=== PATIENT | male | born 1955 | race Caucasian/White ===

== ENCOUNTER 2018-06-13 11:15 | Emergency (ER) | payer OTHER, SELFPAY ==
[2018-06-13 11:21] VITALS: BP 128/74; PULSE 68; RESP 12; TEMP 37.1; O2SAT 98; BMI 33.1
--- NOTE | 2018-06-13 11:27 | ED_ITS ---
HPI - Chest Pain General Chief Complaint: Chest Pain Stated Complaint: chest pain, heart palpitations Time Seen by Provider: 06/13/18 11:27 Source: patient Mode of arrival: ambulatory Limitations: no limitations History of Present Illness HPI narrative: 62-year-old male here for evaluation of left-sided chest pain. Patient states that he has had a ?background ?discomfort in the left side of his chest for the past 2 weeks. Does not get worse with palpation and movement or breathing. He states that this morning at approximately 0900 hr in the morning he had an increase in this pain. He states that is now improved without any interventions. Never had anything like this before. No prior cardiac workup. Related Data Home Medications Medication Instructions Recorded Confirmed aspirin 81 mg PO DAILY #0 07/07/16 06/13/18 Allergies Allergy/AdvReac Type Severity Reaction Status Date / Time No Known Allergies Allergy Uncoded 11/01/17 12:39 Review of Systems Constitutional Denies fever(s) and Denies headache(s) ENT Ears, Nose, Mouth, and Throat: Denies vertigo, Denies dizziness and Denies headache(s) Cardiovascular Reports chest pain, Denies irregular heart rhythm, Reports palpitations, Denies dyspnea and Denies dyspnea on exertion Respiratory Denies cough, Denies dyspnea and Denies dyspnea on exertion Gastrointestinal Gastrointestinal: Denies abdominal pain, Denies nausea and Denies vomiting Genitourinary Denies dysuria Musculoskeletal Denies myalgias and Denies arthralgias Integumentary/Breasts Denies lesions and Denies rash Neurologic Denies vertigo, Denies dizziness and Denies headache(s) Endocrine Reports palpitations Hematologic/Lymphatic Denies easy bleeding and Denies easy bruising [facility] Medical History Ankle pain (Chronic ~2014) Chronic back pain (Chronic ~2014) Chronic cough (Chronic ~1989) GERD (gastroesophageal reflux disease) (Chronic ~2004) Hay fever (Chronic ~1989) Restless leg syndrome (Chronic ~1989) Scoliosis (Chronic ~2014) Shoulder pain (Chronic ~2004) Sleep apnea (Chronic ~1989) Vision disorder (Chronic) Surgical History Anesthesia (Resolved) History of spinal fusion (~2015) Status post laminectomy (~2015) Family History Father Heart disease Hypertension High cholesterol Mother Age: 84 COPD (chronic obstructive pulmonary disease) Kidney disease Grandmother Cancer Social History Smoking Status: Never smoker Exam Initial Vital Signs Initial Vital Signs: Vital Signs Temperature 98.8 F 06/13/18 11:21 Pulse Rate 68 06/13/18 11:21 Respiratory Rate 12 06/13/18 11:21 Blood Pressure 128/74 06/13/18 11:21 Pulse Oximetry 98 06/13/18 11:21 Const General: cooperative, healthy appearing, comfortable, well developed, well groomed and No acute distress Orientation: alert, awake and oriented x3 HENMT Head: normal to inspection and normocephalic Chest Chest: normal inspection of the chest and normal palpation of entire chest wall Resp Effort & Inspection: normal respiratory effort Auscultation: clear to auscultation bilaterally Cardio Rate: regular rate Rhythm: regular rhythm Pulses: radial pulses present GI Inspection: non-distended Palpation: soft, No firm and No tender Back/Spine/Pelvis Back: No CVA tenderness Skin Lesions: no lesions Rashes: no rashes Neuro General: alert, awake and oriented x3 Cognition: normal cognition Speech: speech normal Extrem General: normal to inspection and capillary refill normal Scores HEART Score Heart Score history: Slightly Suspicious Heart Score EKG: Normal Heart Score Age: 45-64 years old Heart Score risk factors: No known risk factors Heart Score troponin: < or = to normal limit Heart Score Total: 1 Course Orders Ordered: ED Orders 06/13/18 11:21 EKG-12 Lead Routine 06/13/18 11:26 XR chest 1V Stat 06/13/18 11:35 Complete Blood Count AUTO DIFF Stat Comprehensive Metabolic Panel Stat Lipase Stat Troponin & CK Cardiac Panel Stat 06/13/18 15:00 Troponin I Stat Discontinued Medications Aspirin (Aspirin Chew) 324 mg PO NOW ONE Stop: 06/13/18 11:27 Last Admin: 06/13/18 11:31 Dose: 243 mg Sodium Chloride (Normal Saline 0.9%) 1,000 mls @ 150 mls/hr IV CONT KATHY Last Admin: 06/13/18 15:52 Dose: Not Given Vital Signs - 8 hr 06/13/18 11:21 06/13/18 11:30 06/13/18 12:00 Temperature 98.8 F Pulse Rate 68 70 59 L Respiratory Rate 12 11 L 12 Blood Pressure 128/74 Blood Pressure [Right Arm] 108/54 L Pulse Oximetry 98 98 98 06/13/18 12:30 06/13/18 15:50 Temperature Pulse Rate 55 L 68 Respiratory Rate 13 12 Blood Pressure Blood Pressure [Right Arm] 108/71 118/71 Pulse Oximetry 98 100 MDM - Chest Pain Lab Data Attestation: I reviewed the patient's lab results. Result diagrams: 06/13/18 11:35 06/13/18 11:35 Lab Results 06/13/18 06/13/18 06/13/18 Range/Units 11:35 11:35 15:00 WBC 3.8 L (4.5-11.0) X10^3/uL RBC 4.49 L (4.5-5.9) X10^6/uL Hgb 14.0 (13.5-17.5) g/dL Hct 41.7 (41-53) % MCV 92.9 (80-100) fL MCH 31.1 (26-34) PG MCHC 33.5 (30-36) % RDW 14.4 (11.6-14.8) % Plt Count 163 (150-400) X10^3/uL Neut % (Auto) 56.3 (50-75) % Lymph % (Auto) 31.1 (25-40) % [place] % (Auto) 8.6 (3-14) % Eos % (Auto) 2.7 (2-4) % Baso % (Auto) 1.3 (0-2) % Neut # (Auto) 2100 L (3665-5352) /uL Sodium 140 (137-145) mmol/L Potassium 4.1 (3.4-5.1) mmol/L Chloride 104 (98-107) mmol/L Carbon Dioxide 24 (22-32) mmol/L BUN 18 (9-20) mg/dL Creatinine 0.80 (0.66-1.25) mg/dL Estimated GFR > 60.0 (>60) mL/min BUN/Creatinine Ratio 22.5 H (6-22) Glucose 93 (80-110) mg/dL Calcium 9.7 (8.4-10.2) mg/dL Total Bilirubin 0.3 (0.2-1.3) mg/dL AST 33 (17-59) IU/L ALT 39 (21-72) IU/L Alkaline Phosphatase 40 (38-126) U/L Total Creatine Kinase 252 H (55-170) U/L CK-MB (CK-2) 3.03 H (<2.37) ng/mL CK-MB (CK-2) Rel Index 1.2 L (1.5-5.0) % Troponin I < 0.012 < 0.012 (0.01-0.034) ng/mL Total Protein 6.9 (6.3-8.2) g/dL Albumin 4.6 (3.5-5.0) g/dL Globulin 2.3 (1.7-4.1) g/dL Albumin/Globulin Ratio 2.0 (1.0-2.8) Lipase 69 (23-300) U/L Imaging Data Chest x-ray: Radiologist's impression: [address] [address] XRay Report Signed Patient: Mike Bedoya TMR#: [id number] : 6Acct:[id number] Age/Sex: 62 / MDate of Service: 06/13/18 Loc: ED Accession Number: [id number] Procedure: XR chest 1V Ordering Provider: Yony Levine D.O. PROCEDURE: XR CHEST 1V INDICATIONS: chest pain TECHNIQUE: One view of the chest was acquired. COMPARISON: None. FINDINGS: Surgical changes and devices: None. Lungs and pleura: No pleural effusions or pneumothorax. Lungs are clear. Mediastinum: Mediastinal contours appear normal. Heart size is normal. Bones and chest wall: No suspicious bony lesions. Overlying soft tissues appear unremarkable. IMPRESSION: No acute process. Dictated by: Kandis Retana M.D. on 06/13/2018 at 11:42 Approved by: Kandis Retana M.D. on 06/13/2018 at 11:42 ECG Data Attestation: I personally reviewed and interpreted this ECG as follows: Prior ECG tracings: available for review Interpretation: Sinus rhythm Ventricular rate is 63 Normal QRS Normal QTC Normal axis No ST T wave changes Comparison EKG dated 07/14/2016 Sinus rhythm First degree AV block as needed oval 223 Rate is [address] T wave changes MDM Narrative Medical decision making narrative: Patient with unchanged EKG. Troponins negative x2 with the 2nd 1 being 6 hr after the increase in his symptoms earlier today. He has had background symptoms for the past 2 weeks. Low suspicion for ACS. Chest x-ray is unremarkable. Patient was informed he needed to contact his primary care doctor to discuss the indications for a stress test. He is given return precautions. He expressed understanding and agreement plan. Discharge Plan Departure Patient Disposition: Home Clinical Impression: Atypical chest pain Discharge Date/Time: 06/13/18 15:57 Interventions: ED Discharge Assessment Last Done: 06/13/18 15:57 Instructions: DI for Atypical Chest Pain Activity Restrictions/Additional Instructions: I recommend you contact your primary care doctor to discuss I referral to have a stress test performed. Return to the emergency department for any new symptoms, worsening chest pain, problems breathing or any other concerning symptoms. Prescriptions: No Action aspirin 81 MG tablet,delayed release (DR/EC) 81 mg PO DAILY Qty: 0 RF: 0
[2018-06-13 11:30] VITALS: BP 108/54; PULSE 70; RESP 11; O2SAT 98
[2018-06-13] MEDS: ASPIRIN 81 MG TAB 324 MG PO (11:31)
[2018-06-13 11:50] LABS: Add Manual Diff / Slide Review NO; Basophils Percent Auto 1.3 % (0-2); Eosinophils Percent Auto 2.7 % (2-4); Hematocrit 41.7 % (41-53); Lymphocytes Percent Auto 31.1 % (25-40); Mean Corpuscular HGB Conc 33.5 % (30-36); Mean Corpuscular Hemoglobin 31.1 PG (26-34); Mean Corpuscular Volume 92.9 fL (80-100); Monocytes Percent Auto 8.6 % (3-14); Neutrophils Absolute Auto 2100 /uL (3000-5900); Neutrophils Percent Auto 56.3 % (50-75); Platelet Count 163 X10^3/uL (150-400); Red Blood Cell Count 4.49 X10^6/uL (4.5-5.9); Red Cell Distribution Width 14.4 % (11.6-14.8); White Blood Cell Count 3.8 X10^3/uL (4.5-11.0)
[2018-06-13 12:00] VITALS: PULSE 59; RESP 12; O2SAT 98
[2018-06-13 12:11] LABS: Alanine Aminotransferase 39 IU/L (21-72); Albumin 4.6 g/dL (3.5-5.0); Alkaline Phosphatase 40 U/L (38-126); Aspartate Aminotransferase 33 IU/L (17-59); BUN Creatinine Ratio 22.5 (6-22); Bilirubin Total 0.3 mg/dL (0.2-1.3); Blood Urea Nitrogen 18 mg/dL (9-20); Calcium 9.7 mg/dL (8.4-10.2); Carbon Dioxide 24 mmol/L (22-32); Chloride 104 mmol/L (98-107); Creatine Kinase 252 U/L (55-170); Estimated Glomerular Filt Rate > 60.0 mL/min (>60); Globulin 2.3 g/dL (1.7-4.1); Glucose 93 mg/dL (80-110); HEMOLYSIS < 15 (0-50); Lipase 69 U/L (23-300); Potassium 4.1 mmol/L (3.4-5.1); Sodium 140 mmol/L (137-145); Total Protein 6.9 g/dL (6.3-8.2)
[2018-06-13 12:22] LABS: Troponin I < 0.012 ng/mL (0.01-0.034)
[2018-06-13 12:26] LABS: CKMB % Relative Index 1.2 % (1.5-5.0); Creatine Kinase MB 3.03 ng/mL (<2.37)
[2018-06-13 12:30] VITALS: BP 108/71; PULSE 55; RESP 13; O2SAT 98
[2018-06-13 15:35] LABS: Troponin I < 0.012 ng/mL (0.01-0.034)
[2018-06-13 15:50] VITALS: BP 118/71; PULSE 68; RESP 12; O2SAT 100
== END 2018-06-13 15:57 | disposition home or self-care (01) ==
PROVIDERS: Emergency Provider Emergency Medicine; PCP Family Medicine
DX: R07.89 Other chest pain (principal)
CPT/HCPCS: 36415; 36591; 71045; 80053; 82550; 82553; 83690; 84484; 85025; 93005; 99284; 99285

== ENCOUNTER → 2018-08-15 07:49 | Outpatient (CLI) | payer OTHER, SELFPAY ==
--- NOTE | 2018-08-15 12:42 | PM.TREADMILL ---
Cardiac Stress Test Report Referral & Results Date Patient Seen: 08/15/18 Requesting provider: Anmol Banks Indication: Atypical chest pain Rest ECG: Unremarkable Procedure Note: Today following both written and verbal informed consent, the patient was exercised according to a standard Dereck protocol. The patient exercised for a total of 9 min 25 sec achieving a maximum heart rate of 165. Patient's maximum systolic blood pressure was 200. This was an estimated 10.1 MET's. There are no ST-T segment changes Rare PVCs Normal heart rate and blood pressure response although remained somewhat tachycardic willing to recovery Functional aerobic impairment rated-10% on the active scale or 110% normal Impression: No evidence of ischemia based on usual ECG criteria Better than average exercise capacity Please note: Actual ECG tracings can be found in the PACS system.
== END ==
PROVIDERS: PCP Family Medicine; Visit Provider Family Medicine
DX: R07.89 Other chest pain (principal)
CPT/HCPCS: 93016; 93017; 93018

== ENCOUNTER → 2019-12-31 10:08 | Outpatient (CLI) | payer OTHER, SELFPAY ==
[2019-12-31 11:02] LABS: Add Manual Diff / Slide Review NO; Basophils Absolute Auto 0 /uL (0-100); Basophils Percent Auto 0.7 % (0-2); Eosinophils Absolute Auto 100 /uL (0-450); Eosinophils Percent Auto 4.1 % (2-4); Hemoglobin 14.4 g/dL (13.5-17.5); Lymphocytes Absolute Auto 1000 /uL (1100-4500); Lymphocytes Percent Auto 32.5 % (25-40); Mean Corpuscular HGB Conc 34.3 % (30-36); Mean Corpuscular Hemoglobin 32.1 PG (26-34); Mean Corpuscular Volume 93.5 fL (80-100); Monocytes Absolute Auto 300 /uL (0-900); Monocytes Percent Auto 10.4 % (3-14); Neutrophils Absolute Auto 1700 /uL (1500-7000); Neutrophils Percent Auto 52.3 % (50-75); Platelet Count 166 X10^3/uL (150-400); Red Blood Cell Count 4.49 X10^6/uL (4.5-5.9); Red Cell Distribution Width 14.7 % (11.6-14.8); White Blood Cell Count 3.2 X10^3/uL (4.5-11.0)
[2019-12-31 11:05] LABS: Hemoglobin A1C% w Est Avg Glu 5.2 % (4.0-6.0)
[2019-12-31 11:12] LABS: Alanine Aminotransferase 32 IU/L (<50); Albumin 4.6 g/dL (3.5-5.0); Albumin Globulin Ratio 1.6 (1.0-2.8); Alkaline Phosphatase 42 U/L (38-126); Aspartate Aminotransferase 40 IU/L (17-59); Bilirubin Total 0.6 mg/dL (0.2-1.3); Blood Urea Nitrogen 16 mg/dL (9-20); Calcium 9.6 mg/dL (8.4-10.2); Carbon Dioxide 25 mmol/L (22-32); Chloride 106 mmol/L (98-107); Estimated Glomerular Filt Rate > 60.0 mL/min (>60); Globulin 2.8 g/dL (1.7-4.1); Glucose 99 mg/dL (80-110); HEMOLYSIS < 15 (0-50); Potassium 4.3 mmol/L (3.4-5.1); Sodium 137 mmol/L (137-145); Total Protein 7.4 g/dL (6.3-8.2)
[2019-12-31 11:36] LABS: Prostate Specific Antigen 0.919 ng/mL (0.10-4.00)
[2019-12-31 11:56] LABS: TSH w/ Reflex to FT4 0.64 uIU/mL (0.47-4.68)
[2020-01-01 11:51] LABS: SARS-CoV19- IgM Negative (Negative)
[2020-01-01 12:08] LABS: SARS CoV19 IgG Negative (Negative)
[2020-01-01 14:12] LABS: Cholesterol 207 mg/dL (140-199); HDL Cholesterol 69 mg/dL (40-60); LDL Cholesterol Calculated 123 mg/dL (<100); Triglycerides 73 mg/dL (35-150)
== END ==
PROVIDERS: PCP Family Medicine; Referring Provider Family Medicine; Visit Provider Family Medicine
DX: Z00.00 Encounter for general adult medical examination without abnormal findings (principal); Z13.220 Encounter for screening for lipoid disorders; R50.9 Fever, unspecified; Z13.6 Encounter for screening for cardiovascular disorders
CPT/HCPCS: 36415; 80053; 80061; 83036; 84153; 84443; 85025; 86769

== ENCOUNTER → 2021-04-02 08:58 | Outpatient (CLI) | payer MEDICARE, OTHER, SELFPAY ==
[2021-04-02 10:46] LABS: Add Manual Diff / Slide Review NO; Basophils Absolute Auto 0 /uL (0-100); Basophils Percent Auto 0.9 % (0-2); Eosinophils Absolute Auto 200 /uL (0-450); Eosinophils Percent Auto 5.3 % (2-4); Hematocrit 43.5 % (41-53); Hemoglobin 14.4 g/dL (13.5-17.5); Lymphocytes Absolute Auto 1100 /uL (1100-4500); Lymphocytes Percent Auto 28.6 % (25-40); Mean Corpuscular HGB Conc 33.1 % (30-36); Mean Corpuscular Hemoglobin 30.9 PG (26-34); Mean Corpuscular Volume 93.3 fL (80-100); Monocytes Absolute Auto 400 /uL (0-900); Monocytes Percent Auto 10.2 % (3-14); Neutrophils Absolute Auto 2200 /uL (1500-7000); Platelet Count 179 X10^3/uL (150-400); Red Blood Cell Count 4.66 X10^6/uL (4.5-5.9); Red Cell Distribution Width 14.3 % (11.6-14.8)
[2021-04-02 11:16] LABS: Alanine Aminotransferase 44 IU/L (<50); Albumin 4.4 g/dL (3.5-5.0); Albumin Globulin Ratio 1.8 (1.0-2.8); Alkaline Phosphatase 44 U/L (38-126); Aspartate Aminotransferase 39 IU/L (17-59); BUN Creatinine Ratio 11.1 (6-22); Bilirubin Total 0.4 mg/dL (0.2-1.3); Blood Urea Nitrogen 10 mg/dL (9-20); Calcium 9.5 mg/dL (8.4-10.2); Carbon Dioxide 23 mmol/L (22-32); Chloride 109 mmol/L (98-107); Cholesterol 219 mg/dL (140-199); Estimated Glomerular Filt Rate > 60.0 mL/min (>60); Globulin 2.5 g/dL (1.7-4.1); Glucose 90 mg/dL (80-110); HDL Cholesterol 71 mg/dL (40-60); HEMOLYSIS < 15 (0-50); LDL Cholesterol Calculated 131 mg/dL (<100); Potassium 4.2 mmol/L (3.4-5.1); Sodium 139 mmol/L (137-145); Total Protein 6.9 g/dL (6.3-8.2); Triglycerides 87 mg/dL (35-150)
[2021-04-02 11:36] LABS: TSH w/ Reflex to FT4 0.64 uIU/mL (0.47-4.68)
[2021-04-02 11:37] LABS: Prostate Specific Antigen Scrn 0.741 ng/mL (0.1-4.0)
== END ==
PROVIDERS: PCP Family Medicine; Referring Provider Family Medicine; Visit Provider Family Medicine
DX: E78.5 Hyperlipidemia, unspecified (principal); Z12.5 Encounter for screening for malignant neoplasm of prostate; Z13.220 Encounter for screening for lipoid disorders; Z13.6 Encounter for screening for cardiovascular disorders
CPT/HCPCS: 36415; 80053; 80061; 84443; 85025; G0103

== ENCOUNTER → 2021-12-28 14:00 | Outpatient (CLI) | payer MEDICARE, OTHER, SELFPAY ==
--- NOTE | 2021-12-28 14:01 | DI.RAD.S_ITS ---
PROCEDURE: XR HIP W PEL IF DONE LUAN MIN 4V INDICATIONS: Left hip pain - suspect OA TECHNIQUE: AP pelvis with lateral view(s) of the bilateral hip(s). COMPARISON: None. FINDINGS: Bones: No fractures or dislocations. Pelvic ring appears intact. No suspicious bony lesions. Mild bilateral acetabular joint space narrowing noted. L5-S1 fixation with posterior alicia and screw instrumentation. Soft tissues: The visualized bowel gas pattern is normal. No suspicious soft tissue calcifications. IMPRESSION: Mild bilateral acetabular joint space narrowing without marginal osteophytes. L5-S1 discectomy and fusion Approved by: Faraz Victoria M.D. on 12/28/2021 at 17:23
== END ==
PROVIDERS: PCP Family Medicine; Referring Provider Physician Assistant; Visit Provider Physician Assistant
DX: M25.552 Pain in left hip (principal); Z98.1 Arthrodesis status
CPT/HCPCS: 73522; 93005

== ENCOUNTER → 2022-08-02 14:56 | Outpatient (CLI) | payer MEDICARE, OTHER, SELFPAY ==
[2022-08-02 16:28] LABS: Prostate Specific Antigen 1.03 ng/mL (0.10-4.00)
== END ==
PROVIDERS: PCP Family Medicine; Referring Provider Urology; Visit Provider Urology
DX: N40.1 Benign prostatic hyperplasia with lower urinary tract symptoms (principal); N39.43 Post-void dribbling
CPT/HCPCS: 36415; 84153

== ENCOUNTER → 2022-10-14 10:55 | Outpatient (CLI) | payer MEDICARE, OTHER, SELFPAY | PROVIDERS: PCP Family Medicine; Visit Provider Urology | DX: N32.81 Overactive bladder (principal); N39.41 Urge incontinence; R33.9 Retention of urine, unspecified | CPT/HCPCS: 87086 ==

== ENCOUNTER → 2022-10-14 11:34 | Outpatient (CLI) | payer MEDICARE, OTHER, SELFPAY ==
[2022-10-14 12:50] LABS: Appearance Urine UA CLEAR; Bilirubin Urine UA NEGATIVE (NEGATIVE); Color Urine UA YELLOW; Glucose Urine UA NEGATIVE (Negative); Ketones Urine UA NEGATIVE (NEGATIVE); Leukocyte Esterase Urine UA NEGATIVE (NEGATIVE); Nitrite Urine UA NEGATIVE (Negative); Occult Blood Urine UA NEGATIVE (Negative); Protein Urine UA NEGATIVE (Negative); Specific Gravity Urine UA <=1.005 (1.000-1.035); Urobilinogen Urine UA 0.2 E.U./dL (0.2)
[2022-10-14 13:01] LABS: Bacteria Urine None Seen; Culture Indicated Urine Cult Not Indicated; RBC Urine None Seen (0-5/HPF); Squamous Epithelial Cell Urine None Seen (0-5/HPF); WBC Urine None Seen (0-5/HPF)
[2022-10-14 13:12] LABS: Add Manual Diff / Slide Review NO; Basophils Absolute Auto 0 /uL (0-100); Basophils Percent Auto 0.7 % (0-2); Eosinophils Absolute Auto 100 /uL (0-450); Eosinophils Percent Auto 2.7 % (2-4); Hematocrit 43.7 % (41-53); Hemoglobin 14.7 g/dL (13.5-17.5); Lymphocytes Absolute Auto 1300 /uL (1100-4500); Lymphocytes Percent Auto 29.6 % (25-40); Mean Corpuscular HGB Conc 33.8 % (30-36); Mean Corpuscular Hemoglobin 31.2 PG (26-34); Mean Corpuscular Volume 92.3 fL (80-100); Monocytes Absolute Auto 500 /uL (0-900); Monocytes Percent Auto 10.5 % (3-14); Neutrophils Absolute Auto 2600 /uL (1500-7000); Neutrophils Percent Auto 56.5 % (50-75); Platelet Count 196 X10^3/uL (150-400); Red Blood Cell Count 4.73 X10^6/uL (4.5-5.9); Red Cell Distribution Width 14.4 % (11.6-14.8); White Blood Cell Count 4.5 X10^3/uL (4.5-11.0)
[2022-10-14 13:20] LABS: Hemoglobin A1C% w Est Avg Glu 5.3 % (4.0-6.0)
[2022-10-14 13:31] LABS: BUN Creatinine Ratio 13.6 (6-22); Blood Urea Nitrogen 12 mg/dL (9-20); Calcium 9.5 mg/dL (8.4-10.2); Carbon Dioxide 23 mmol/L (22-32); Chloride 105 mmol/L (98-107); Estimated Glomerular Filt Rate > 60 mL/min (>60); Glucose 78 mg/dL (80-110); HEMOLYSIS < 15 (0-50); Sodium 138 mmol/L (137-145)
== END ==
PROVIDERS: PCP Family Medicine; Referring Provider Orthopaedic Surgery; Visit Provider Orthopaedic Surgery
DX: Z01.818 Encounter for other preprocedural examination (principal); Z01.812 Encounter for preprocedural laboratory examination; R73.9 Hyperglycemia, unspecified; N39.0 Urinary tract infection, site not specified; N40.1 Benign prostatic hyperplasia with lower urinary tract symptoms; N32.81 Overactive bladder; N39.41 Urge incontinence; R33.9 Retention of urine, unspecified; R39.9 Unspecified symptoms and signs involving the genitourinary system; N39.43 Post-void dribbling
CPT/HCPCS: 36415; 51798; 80048; 81001; 81002; 83036; 85025; 87086; 93005; 93010; 99214

== ENCOUNTER 2022-12-15 08:56 | Day surgery (SDC) | payer MEDICARE, OTHER, SELFPAY ==
[2022-12-05 13:55] VITALS: BMI 38.4
[2022-12-15] VITALS (10 sets, daily range): BP systolic 112–166; BP diastolic 60–92; PULSE 70–94; RESP 11–21; TEMP 35.9–36.6; O2SAT 92–99; BMI 38.0
--- NOTE | 2022-12-15 08:17 | DI.RAD.S_ITS ---
PROCEDURE: XR PELVIS 1-2V INDICATIONS: INNER OP PELVIS TECHNIQUE: Intra-operative view of the pelvis and hip acquired. COMPARISON: None. FINDINGS: Bones: Intraoperative devices prior to placement of arthroplasty prostheses are in expected positions. No fractures or suspicious bony lesions. Soft tissues: Overlying surgical retractors are present, along with other intraoperative changes. IMPRESSION: Single intraoperative fluoroscopic image of a left hip arthroplasty. Dictated by: Irina Mitchell M.D. on 12/15/2022 at 17:35 Approved by: Irina Mitchell M.D. on 12/15/2022 at 17:35
[2022-12-15] MEDS: ACETAMINOPHEN 325 MG TABLET 975 MG PO (09:37)
[2022-12-15] MEDS: PREGABALIN 75 MG CAPSULE PO (09:37)
[2022-12-15] MEDS: CELECOXIB 200 MG CAPSULE PO (09:38)
[2022-12-15] MEDS: VANCOMYCIN 1,000 MG/200 ML PIGGYBACK 200 MG IV (10:23)
[2022-12-15] MEDS: LACTATED RINGERS 1,000 ML 42 ML IV ×2 (10:27→12:15)
--- NOTE | 2022-12-15 10:45 | P.OP_ITS ---
Operative Date/Time/Diagnoses Date of procedure: 12/15/22 Time of procedure: 11:20 Pre-op diagnosis: left hip OA severe Post-op diagnosis: same Procedure & Clinicians Procedure: Left total hip arthroplasty posterior approach Same procedure as scheduled: Yes Indications: The patient has had progressively worsening left hip pain with radiographic changes consistent with arthritis. Non-operative management has failed and the patient has requested total hip replacement. The risks, benefits and alternatives to surgery were discussed with the patient prior to proceeding. Risks discussed included, but were not limited to, failure to relieve pain, leg length discrepancy, dislocation, stiffness, infection, nerve damage, deep venous thrombosis, pulmonary embolism, stroke, coma, heart attack, permanent paralysis and , as well as the potential need for eventual revision of the prosthetic. Surgeon: Dominique Bustillo Abstract Checker: Santi Lizama Anesthesia Type: General Operative Notes Findings: Severe left hip osteoarthritis, adequate stability, tight hip preop hip abduction contracture Closure Type: primary Specimen(s): none sent Prosthetic devices, grafts, tissues, transplants, or devices: Bustillo and nephew size 14 synergy, 56 mm R3 cup, 56 x -3 Oxinium head, neutral poly liner, one 6.5 mm screw Estimated Blood Loss (mL): 250 Blood products transfused: none Procedure in detail: The patient was seen in the pre-operative area, where the patient identified the left hip as the operative site and this was marked with my initials. The patient received pre-operative antibiotics and was taken to the operating room and placed on the operative table in the right lateral decubitus position after satisfactory anesthesia. A lead care manager out was performed. The left leg was prepared from the ankle to the iliac crest with ChloroPrep in the usual fashion and draped through sterile drapes. A PA was used throughout the procedure and was critical for intraoperative positioning of the patient, retraction of the femoral to allow successful implantation of the components and adequate visualization for hemostasis. The hip was approached through an approximately 20 cm incision centered over the greater trochanter and curving gently posteriorly as it went proximally. This was carried sharply to the fascia kevin, which was divided and retracted with a self retaining retractor. The trochanteric bursa was excised with care being taken to avoid the sciatic nerve, which was identified and protected throughout the case. The short external rotators were incised and the capsulomuscular flap was raised and tagged for later repair. The hip was dislocated, and a femoral neck osteotomy performed approximately 15 mm above the lesser trochanter. Retractors were placed around the femur. The canal was opened with a box cutting osteotome, followed by a T handled reamer and a lateralizing reamer. The chili pepper broach was then used, followed by sequential broaching until there was good stability of the broach in the femur. Retractors were placed to expose the acetabulum. The labrum and central soft tissues were removed. Reaming was performed initially going up in 2 mm increments, then 1 mm increments until good bite was obtained with an odd sized reamer. The cup 1 mm larger than the last reamer was then inserted using the appropriate anteversion guides. It was further stabilized with 2 screws. He did have a somewhat washed out acetabulum. Good stability was achieved. A trial neutral liner was placed. The broach was placed in the canal. A trial head and neck were then placed and the hip relocated and checked for leg length and stability. An intraoperative film confirmed the component position and no evidence of fracture. It was felt that the component was in slight varus and we should attempt to go up at least 1 and further lateralize the component. The patient was stable in the position of sleep, of squatting, and could be put through a range of motion with 45 degrees internal rotation without dislocation. At 90 degrees flexion, internal rotation to 70? was possible before dislocation. I was able to additionally ream with Reamer and then further broached up to a size 14 synergy. This was felt to be satisfactory and the appropriate components were opened, and the trials were removed. The acetabular liner was impacted into position. The final stem was then impac loan into the prepared femoral canal. A brief Betadine soak was performed while trialing with head options. The hip was meticulously irrigated with normal saline. Finally the femoral head was impacted onto the stem. The acetabulum was cleared of all material and the hip relocated one final time. The capsulomuscular flap was then repaired to the greater trochanter though an awl hole using the tag sutures. The short external rotators were repaired with a nonabsorbable suture. A deep drain was placed and brought out anteriorly. The fascia kevin was closed with Vicryl. The subcutaneous layer was closed with barbed sutures and skin jose. An Aquacel Ag dressing was applied and the patient was taken to recovery having tolerated the procedure well. Complications: none Post-operative Condition: stable Disposition: Acute Care Plan for aftercare: The patient will be maintained on a standard total hip replacement protocol with weight bearing as tolerated and posterior hip precautions. The patient will receive Aspirin and sequential compression devices for DVT prophylaxis. The patient will be discharged home when safe for the home environment.
--- NOTE | 2022-12-15 10:45 | PM.PREOP ---
Pre-operative Note Interval Note History & Physical reviewed/Exam performed by Physician: Yes Changes to H&P: No
[2022-12-15] MEDS: CEFAZOLIN VIAL 3 GM in SODIUM CHLORIDE 0.9% 100 ML IV ×2 (12:03→19:52)
[2022-12-15] MEDS: TRANEXAMIC ACID 1,000 MG VIAL 2000 MG INJ ×2 (12:05→13:50)
--- NOTE | 2022-12-15 12:15 | SUR.OPER ---
Lateral on padded OR bed. Gel axillary roll. Arms secured on padded armboard with two pillows supporting top arm. Gel pad under right arm. Padded hip positioner braces x4 - anterior and posterior chest and pelvis. Additional gel pad used anterior pelvis. Gel pad under bottom leg from knee to foot and secured with tape over sheet.
[2022-12-15] MEDS: BUPIVACAINE 0.25% (PF) 60 ML, EPINEPHrine 0.3 MG INJ (12:30)
[2022-12-15] MEDS: BUPIVACAINE LIPOSOME 266 MG/20 ML VIAL INJ (12:31)
[2022-12-15] MEDS: SODIUM CHLORIDE IRRIG SOLUTION 250 ML, POVIDONE-IODINE SPONGE STICKS 1 APPLIC IRR (12:36)
[2022-12-15] MEDS: LACTATED RINGERS 1,000 ML 100 ML IV (13:15)
[2022-12-15] MEDS: OXYCODONE IR 5 MG TABLET PO ×2 (14:26→21:15)
--- NOTE | 2022-12-15 14:30 | DI.RAD.S_ITS ---
PROCEDURE: XR HIP W PEL IF DONE LT 2V INDICATIONS: POST OP LEFT HIP TECHNIQUE: AP pelvis and lateral view of the left hip acquired. COMPARISON: [facility], [facility], XR HIP W PEL IF DONE LUAN 3TO4V, 12/28/2021, 13:58. FINDINGS: Bones: Patient is status post left hip arthroplasty, with hardware components in expected positions. The hip joint appears congruent. The visualized bony structures appear intact. Soft tissues: Overlying postoperative changes are noted. No suspicious soft tissue densities. IMPRESSION: Expected appearance post left hip arthroplasty. Dictated by: Mary Anne M.D. on 12/16/2022 at 21:45 Approved by: Mary Anne M.D. on 12/16/2022 at 21:46
--- NOTE | 2022-12-15 16:00 | PT.IIE ---
Current Diagnoses Unilateral primary osteoarthritis, left hip (12/15/22) Surgery Performed Operation Date: 12/15/22 10:45 Actual Procedures p Total Hip Arthroplasty(Left) - Dominique Bustillo MD Surgical History (Last Updated 12/05/22 @ 14:12 by Candida Beach RN) Anesthesia History of spinal fusion (~2015) Hx of arthroscopy of knee Hx of bilateral cataract extraction Hx of eye surgery (2022) Hx of tonsillectomy Status post laminectomy (~2015) Medical History (Last Updated 12/05/22 @ 14:13 by Candida Beach RN) Ankle pain (~2014) Chronic back pain (~2014) Chronic cough (~1989) Encounter for routine ophthalmic evaluation and examination (12/13/16) Fever Frequent urinary incontinence GERD (gastroesophageal reflux disease) (~2004) Hay fever (~1989) Incomplete emptying of bladder Lower urinary tract symptoms Overactive bladder Pain in the coccyx (12/13/16) Restless leg syndrome (~1989) Scoliosis (~2014) Screening cholesterol level Shoulder pain (~2004) Sleep apnea (~1989) Urge incontinence Urgency of urination Urinary incontinence Vision disorder Physical Therapy Inpatient Evaluation/Re-Eval M1 PT/OT-IP Prior Functional Status Start: 12/15/22 17:00 Freq: NEEDED Status: Active Protocol: Document 12/15/22 16:00 AB (Rec: 12/15/22 17:14 [id number]) Medical Review Prior Functional Status Medical History Reviewed Yes Communication able to make needs known Mobility and Gait pt stated that he is modified independent with all mobilities and ambulation without AD but uses a SPC depending on hip pain Social History Household Members spouse Living Arrangements House Number of Floors (Floors) Two Floors Number of Stairs To Enter/Railing? 3 steps without rails to enter with braun on B sides has 7 steps B rail +platform+7 steps R rail ascending to 2nd level of the house Home Environment Standard Height Toilet,Walk in Shower,Built-In Shower Seat Home Equipment Front Wheel Walker,Four Wheel Walker,Straight Cane,Raised Toilet Seat w/Armrests,Hand Held Shower Additional Social History Comment pt has 2 FWW: one on each level of the house M2 PT-IP Current Condition Start: 12/15/22 17:00 Freq: NEEDED Status: Active Protocol: Document 12/15/22 16:00 AB (Rec: 12/15/22 17:14 [email or web address]) Physical Therapy Current Condition Current Condition Evaluation Date 12/15/22 Treatment Diagnosis s/p L ZHAO posterior approach; difficulty in walking Onset Date 12/15/22 M3 PT-IP Subjective Start: 12/15/22 17:00 Freq: NEEDED Status: Active Protocol: Document 12/15/22 16:00 AB (Rec: 12/15/22 17:14 [email or web address]) Subjective Physical Therapy Visit Type Type Initial Evaluation Visit Start Time 16:00 Visit Stop Time 17:00 Total Visit Minutes 60 Number of TANK CHARGER Visits 0 Physical Therapy Visit Comments Patient Comments agreeable to do PT Therapy Pain Assessment Pain When Pain Assessed At Rest Pain Present Pain Present Pain Reported Location Left Hip Intensity 5 Scale Used Numeric (0 - 10) Pain Management Techniques Apply Cold,Distraction, Modification of Treatment,Re- positioning,Timing of Activity with Medications M4 PT-IP Mobility and Gait Start: 12/15/22 17:00 Freq: NEEDED Status: Active Protocol: Document 12/15/22 16:00 AB (Rec: 12/15/22 17:14 [email or web address]) PT-Bed Mobility Assessment Supine to Sit Supine to Sit Standby Assistance Sit to Supine Sit to Supine Standby Assistance PT-Transfer Assessment Sit to and From Stand Sit to and from Stand Minimal Assistance,1 Person Assistance,Use of Upper Extremities Equipment Transfer Assistive Device Gait Belt,Front Wheeled Walker Orthotic/Prosthetic Devices or Brace: No Comments Mobility Comments educated pt on posterior hip precautions. BP in supine: 155/84. completed supine to sit SBA from R side of bed. able to sit on EOB SBA. BP in sitting : 147/77. no c/o dizziness. completed sit to stand min A and cues for hip precautions. ambulated in room using FWW ~ 60 ft min A and cues. BP after ambulation: 143/68. requested to go back to bed. completed sit to supine SBA. positioned pt in bed. call light and table placed within reach. informed nurse regarding pt's mobility assistance. Gait Assessment Gait Gait Assistance Required: Minimum Assistance Distance (Feet) 60 Able to Maintain Weight Bearing Status Yes During Gait Assistive Devices Assistive Device Gait Belt,Front Wheeled Walker Orthotic/Prosthetic Devices or Brace: No Gait Deviations General Gait Pattern Antalgic,Decreased Stride Length,Decreased Feet Clearance,Step-to Gait Factors Limiting Gait Function Factors Limiting Gait Function Decreased Activity Tolerance, Decreased Strength,Limited Range of Motion,Pain,Poor Balance,Poor Safety Awareness PT-Balance Assessment Sitting Balance and Reactions Static Sitting Balance Ability Normal Dynamic Sitting Balance Ability Good Standing Balance and Reactions Static Standing Balance Ability Fair Dynamic Standing Balance Ability Fair Device Used FWW M5 PT-IP Objective Assessments Start: 12/15/22 17:00 Freq: NEEDED Status: Active Protocol: Document 12/15/22 16:00 AB (Rec: 12/15/22 17:14 AB [id number]) Orientation Orientation/Cognition Level of Alertness Alert Orientation Name,Place,Situation Language Function Ability No Deficits Noted Safety Awareness Decreased Safety Awareness Memory Description Short Term Impaired Strength Lower Extremity Strength Assessment Left Impaired Hip 3-/5 Knee 4/5 Coordination Assessment Gross Coordination Gross Coordination WNL Sensation Assessment Sensation Gross Sensation WNL Muscle Tone Muscle Tone WNL Yes M6 PT-IP Treatment Start: 12/15/22 17:00 Freq: NEEDED Status: Active Protocol: Document 12/15/22 16:00 AB (Rec: 12/15/22 17:14 AB [email or web address]) Physical Therapy Treatment Education Education Provided Precautions,Weight Bearing Status,Post-Op Packet,Safety M7 PT-IP Assessment and Plan Start: 12/15/22 17:00 Freq: NEEDED Status: Active Protocol: Document 12/15/22 16:00 AB (Rec: 12/15/22 17:14 AB [email or web address]) PT Summary Assessment and Plan Potential Rehabilitation Potential Good Status of Condition at Evaluation Evolving Summary Impairments Pain,ROM,Strength,Balance, Coordination,Sensation,Tone, Cognition,Bed Mobility, Transfers,Gait,Activity Tolerance Assessment Summary PT s/p L ZHAO posterior approach POD 0. pt requiring min A for transfers and ambulation using FWW and will likely progress during hospital stay. will conduct caregiver training when appropriate. Pt also needs to complete stair climbing training prior to d/c. will continue to assess progress. Goals Bed Mobility Goal Independent Transfer Goal Independent,Front Wheeled Walker Gait Goal Independent,Front Wheel Walker Gait Distance 250 Other Goals up/down 3 steps SPC/SACK FILLER CGA up/down 7 steps B rails SBA up/down 7 steps R rail ascending SBA Days to Meet Goals 5 Frequency of Treatment Frequency Of Treatment Twice a Day Treatment Plan Physical Therapy Treatment Plan Bed Mobility Training,Transfer Training,Gait Training, Therapeutic Exercise,Balance Retraining,Post Op Education, Discharge Planning,Hot or Cold Pack,Neuromuscular Re-ed, Coordination Retraining,Manual Therapy Precautions Posterior Hip Precautions No Hip Flexion > 90 degrees,No Hip Internal Rotation,No Hip Adduction Weight Bearing Status Weight Bearing Status Weight Bear as Tolerated Allowed Weight Bearing Amount (enter % LLE WBAT or #) (%) Recommendations To Nursing Amount of Assist Needed 1 Person Assist Discharge Recommendations PT Discharge Recommendations Home with Assistance, Outpatient PT Transportation Needs at Discharge Private Vehicle
--- NOTE | 2022-12-15 16:14 | OT.IPNOTE ---
Check on pt tomorrow as pt currently working with PT.
[2022-12-15] MEDS: OXYCODONE IR 10 MG TABLET PO (16:19)
[2022-12-15] MEDS: IBUPROFEN 400 MG TABLET PO ×2 (19:27→21:16)
[2022-12-15] MEDS: ONDANSETRON 4 MG ODT PO (21:16)
[2022-12-15] MEDS: hydrOXYzine pamoate 25 MG CAPSULE PO (21:16)
[2022-12-15] MEDS: DOCUSATE 100 MG CAPSULE PO (21:16)
[2022-12-15] MEDS: ASPIRIN EC 81 MG TABLET PO (21:16)
[2022-12-16] MEDS: LACTATED RINGERS 1,000 ML 100 ML IV (03:06)
[2022-12-16] MEDS: CEFAZOLIN VIAL 3 GM in SODIUM CHLORIDE 0.9% 100 ML IV (04:28)
[2022-12-16 06:21] LABS: Hematocrit 35.3 % (41-53); Hemoglobin 12.1 g/dL (13.5-17.5)
[2022-12-16] MEDS: IBUPROFEN 400 MG TABLET PO (06:25)
--- NOTE | 2022-12-16 06:47 | PM.DS.1 ---
History of Present Illness History of Present Illness Date Patient Seen: 12/16/22 Time Patient Seen: 06:47 Chief complaint: Left ZHAO *OPB* 12/15 Narrative: Operative Date/Time/Diagnoses Date of procedure: 12/15/22 Time of procedure: 11:20 Pre-op diagnosis: left hip OA severe Post-op diagnosis: same Procedure & Clinicians Procedure: Left total hip arthroplasty posterior approach Same procedure as scheduled: Yes Indications: The patient has had progressively worsening left hip pain with radiographic changes consistent with arthritis. Non-operative management has failed and the patient has requested total hip replacement. The risks, benefits and alternatives to surgery were discussed with the patient prior to proceeding. Risks discussed included, but were not limited to, failure to relieve pain, leg length discrepancy, dislocation, stiffness, infection, nerve damage, deep venous thrombosis, pulmonary embolism, stroke, coma, heart attack, permanent paralysis and , as well as the potential need for eventual revision of the prosthetic. Surgeon: Dominique Bustillo Culinary Arts Teacher: Santi Lizama Anesthesia Type: General Operative Notes Findings: Severe left hip osteoarthritis, adequate stability, tight hip preop hip abduction contracture Closure Type: primary Specimen(s): none sent Prosthetic devices, grafts, tissues, transplants, or devices: Bustillo and nephew size 14 synergy, 56 mm R3 cup, 56 x -3 Oxinium head, neutral poly liner, one 6.5 mm screw Estimated Blood Loss (mL): 250 Blood products transfused: none Discharge Providers Provider Discharge Date: 12/16/22 Primary care physician: Anmol Banks MD Consults: 12/15/22 08:17 Consult to Anesthesiology Routine Comment: Consulting Provider: Anesthesiologist Reason for consultation: Regional block for post operative pain control 12/15/22 14:45 Consult to Discharge Planning Routine Comment: Consult to Occupational Therapy Evaluate & Treat Comment: Physician Instructions: Evaluate and treat Consult to Physical Therapy Evaluate & Treat Comment: Physician Instructions: post op ZHAO protocol Discharge provider: Marianna Lubin PA-C Summary Hospital Course Discharge Diagnosis: Left hip osteoarthritis, s/p left total hip arthroplasty Hospital Course: Mr Bedoya's hospital course was unremarkable. On POD# 1, he was feeling well and wanted to go home. He was eating and voiding without difficulty. His pain was well-controlled with oral medication. He was evaluated by PT and they felt he was safe for homegoing. Exam Vital Signs (past 8 hours): Oxygen Delivery Method Room Air Oxygen Flow Rate 0 Narrative Exam Narrative: 5/5 strength in hip flexors, quadriceps, hamstrings, DF, PF, EHL on left. Sensation to light touch intact throughout LLE. Calf soft, compressible, nontender and without palpable cords or masses. Aquacel dressing CDI. Objective Labs 12/16/22 06:05 Labs: Laboratory Results - last 24 hr 12/16/22 06:05 Hgb 12.1 L Hct 35.3 L PFSH Medical History (Updated 12/05/22 @ 14:13 by Candida Beach RN) Ankle pain (~2014) Chronic back pain (~2014) Chronic cough (~1989) Encounter for routine ophthalmic evaluation and examination (12/13/16) Fever Frequent urinary incontinence GERD (gastroesophageal reflux disease) (~2004) Hay fever (~1989) Incomplete emptying of bladder Lower urinary tract symptoms Overactive bladder Pain in the coccyx (12/13/16) Restless leg syndrome (~1989) Scoliosis (~2014) Screening cholesterol level Shoulder pain (~2004) Sleep apnea (~1989) Urge incontinence Urgency of urination Urinary incontinence Vision disorder Surgical History (Updated 12/05/22 @ 14:12 by Candida Beach RN) Anesthesia History of spinal fusion (~2015) Hx of arthroscopy of knee Hx of bilateral cataract extraction Hx of eye surgery (2022) Hx of tonsillectomy Status post laminectomy (~2015) Family History Father Heart disease Hypertension High cholesterol Mother Age: 89 COPD (chronic obstructive pulmonary disease) Kidney disease Grandmother Cancer Social History marital status: number of children: 2 household members: spouse Smoking Status: Never smoker alcohol intake: current substance use type: does not use caffeine: Yes Discharge Assessment & Plan Assessment and Plan Assessment: Left hip osteoarthritis, s/p left total hip arthroplasty Plan of Treatment: Discharge home, multimodal pain control, ASA BID x 6 weeks for VTE prophylaxis, outpt PT, f/u in 2 weeks as scheduled. Discharge Plan Discharge Plan Patient Disposition: Home Discharge orders & Medications Discharge Orders: Discharge (Order); Ordered 12/16/22 Ordered By: Marianna Lubin Prescriptions: Continued Probiotic 1 ea PO DAILY Qty: 100 0RF Gemtesa 75 mg tablet 75 mg PO DAILY Qty: 30 12RF magnesium glycinate 100 mg Tablet 500 mg PO DAILY multivitamin Tablet 1 tab PO DAILY flaxseed oil 1,000 mg capsule 1,000 mg PO DAILY Rx Instructions: administer with a meal cholecalciferol (vitamin D3) 50 mcg (2,000 unit) capsule 50 mcg PO DAILY Follow up/Referrals: Anmol Banks MD [Primary Care Provider] - Dominique Bustillo MD [Physician] - As previously scheduled (Follow up w/ Dr Bustillo on 12/28/2022 @ 9:30 am at [facility].) Diet/Activity/Treatments Diet: Diet as Tolerated Activity: Weightbearing as tolerated to left hip. Posterior hip precautions. Cold/Heat Therapy: Ice to hip as needed for pain. Other treatments: Aspirin 81 mg twice a day x 6 weeks. Skin/Wound/Dressing Care Report to your healthcare provider any signs of infection, such as:: chills, fever, night sweats, unusual drainage and unusual redness Dressing: May shower with dressing on. Leave Aquacel dressing on until your follow up in the office. No bathing or otherwise soaking the incision. Call the office if the dressing becomes saturated inside. Visit Report/Discharge Packet Instructions: DI for Hip Replacement Stand Alone Forms: Patient Portal/API, Surgery Discharge Discharge Data Primary Care Provider: Anmol Banks Attending Provider: Dominique Bustillo Quality VTE Deep Vein Thrombosis/Pulmonary Embolism Present on Admission: No
[2022-12-16 08:34] VITALS: BP 102/50; PULSE 67; RESP 18; TEMP 36.5; O2SAT 95
[2022-12-16] MEDS: MULTIVITAMIN 1 TABLET 1 TAB PO (08:48)
[2022-12-16] MEDS: CHOLECALCIFEROL (VITAMIN D3) 1,000 UNIT TABLET 1000 UNIT PO (08:48)
[2022-12-16] MEDS: DOCUSATE 100 MG CAPSULE PO (08:48)
[2022-12-16] MEDS: ASPIRIN EC 81 MG TABLET PO (08:48)
[2022-12-16] MEDS: OXYCODONE IR 5 MG TABLET PO (08:48)
[2022-12-16] MEDS: ACETAMINOPHEN 325 MG TABLET 650 MG PO (08:49)
--- NOTE | 2022-12-16 09:05 | PT.IPTN ---
Current Diagnoses Unilateral primary osteoarthritis, left hip (12/15/22) Surgery Performed Operation Date: 12/15/22 10:45 Actual Procedures p Total Hip Arthroplasty(Left) - Dominique Bustillo MD Physical Therapy Treatment Note M2 PT-IP Current Condition Start: 12/15/22 17:00 Freq: NEEDED Status: Active Protocol: Document 12/15/22 16:00 AB (Rec: 12/15/22 17:14 AB [id number]) Physical Therapy Current Condition Current Condition Evaluation Date 12/15/22 Treatment Diagnosis s/p L ZHAO posterior approach; difficulty in walking Onset Date 12/15/22 M3 PT-IP Subjective Start: 12/15/22 17:00 Freq: NEEDED Status: Active Protocol: Document 12/16/22 09:25 TS (Rec: 12/16/22 09:48 TS [id number]) Subjective Physical Therapy Visit Type Type Treatment Note Visit Start Time 09:05 Visit Stop Time 09:24 Total Visit Minutes 19 Number of DEPARTMENTAL SHIPPING CLERK Visits 1 Physical Therapy Visit Comments Patient Comments Pt found ambulating out of restroom, reports minimal pain , agreeable to PT. Therapy Pain Assessment Pain When Pain Assessed At Rest Pain Present Pain Present Pain Reported M4 PT-IP Mobility and Gait Start: 12/15/22 17:00 Freq: NEEDED Status: Active Protocol: Document 12/16/22 09:25 TS (Rec: 12/16/22 09:48 TS [id number]) PT-Transfer Assessment Sit to and From Stand Sit to and from Stand Standby Assistance,1 Person Assistance,Use of Upper Extremities Equipment Transfer Assistive Device Gait Belt,Front Wheeled Walker Orthotic/Prosthetic Devices or Brace: No Comments Mobility Comments Pt found ambulating in room w/ FWW, agreeable to PT. Pt recalled 3/3 hip precautions at start of session. He ambulated ~200' SBA with emerging step thru gait, no buckling or LOB. He performed steps x6 SBA with BUE support, provided cues for step sequencing. Stand to sit in chair SBA with BUE support on arms of chair, demonstrates good carryover of hip precautions with LLE extended. Pt was left in chair with call light nearby, RN notified . Gait Assessment Gait Gait Assistance Required: Standby Assistance Distance (Feet) 200 Able to Maintain Weight Bearing Status Yes During Gait Assistive Devices Assistive Device Gait Belt,Front Wheeled Walker Orthotic/Prosthetic Devices or Brace: No Gait Deviations General Gait Pattern Antalgic,Decreased Stride Length,Decreased Feet Clearance Factors Limiting Gait Function Factors Limiting Gait Function Decreased Strength,Limited Range of Motion,Pain Comments Gait Comments See mobility comments. Stair Climbing Assessment Evaluation Level of Assist On Stairs Standby Assistance Devices Stair Climbing Assistive Devices Left Railing,Right Railing Technique/Endurance Stair Climbing Direction Ascend and Descend Stair Climbing Technique Step to Step Number of Steps Climbed 6 Comments Stair Climbing Comments See mobility comments. PT-Balance Assessment Sitting Balance and Reactions Static Sitting Balance Ability Normal Dynamic Sitting Balance Ability Good Standing Balance and Reactions Static Standing Balance Ability Good Dynamic Standing Balance Ability Fair Device Used FWW M5 PT-IP Objective Assessments Start: 12/15/22 17:00 Freq: NEEDED Status: Active Protocol: Document 12/15/22 16:00 AB (Rec: 12/15/22 17:14 AB [id number]) Orientation Orientation/Cognition Level of Alertness Alert Orientation Name,Place,Situation Language Function Ability No Deficits Noted Safety Awareness Decreased Safety Awareness Memory Description Short Term Impaired Strength Lower Extremity Strength Assessment Left Impaired Hip 3-/5 Knee 4/5 Coordination Assessment Gross Coordination Gross Coordination WNL Sensation Assessment Sensation Gross Sensation WNL Muscle Tone Muscle Tone WNL Yes M6 PT-IP Treatment Start: 12/15/22 17:00 Freq: NEEDED Status: Active Protocol: Document 12/16/22 09:25 TS (Rec: 12/16/22 09:48 [id number]) Physical Therapy Treatment Education Education Provided Precautions,Weight Bearing Status,Post-Op Packet,Safety M7 PT-IP Assessment and Plan Start: 12/15/22 17:00 Freq: NEEDED Status: Active Protocol: Document 12/16/22 09:25 TS (Rec: 12/16/22 09:48 [id number]) PT Summary Assessment and Plan Potential Rehabilitation Potential Excellent Summary Impairments Pain,ROM,Strength,Balance, Coordination,Sensation,Tone, Cognition,Bed Mobility, Transfers,Gait,Activity Tolerance Progress Towards Goals Progressing Toward Goals Assessment Summary Pt is progressing well with his mobility. He increased his ambulation distance to ~200' SBA with step thru gait. He performed stairs x6 SBA with BUE handrail assist, no buckling or LOB. Pt demonstrates good carryover of sit to stand/stand to sit and good safety awareness of his posterior hip precautions, recalled 09/23. PT is recommending return home with assist. Goals Bed Mobility Goal Independent Transfer Goal Independent,Front Wheeled Walker Gait Goal Independent,Front Wheel Walker Gait Distance 250 Other Goals up/down 3 steps SPC/INSTRUMENT MAKER CGA up/down 7 steps B rails SBA up/down 7 steps R rail ascending SBA Days to Meet Goals 5 Frequency of Treatment Frequency Of Treatment Twice a Day Treatment Plan Physical Therapy Treatment Plan Bed Mobility Training,Transfer Training,Gait Training, Therapeutic Exercise,Balance Retraining,Post Op Education, Discharge Planning,Hot or Cold Pack,Neuromuscular Re-ed, Coordination Retraining,Manual Therapy Precautions Posterior Hip Precautions No Hip Flexion > 90 degrees,No Hip Internal Rotation,No Hip Adduction Weight Bearing Status Weight Bearing Status Weight Bear as Tolerated Allowed Weight Bearing Amount (enter % LLE WBAT or #) (%) Recommendations To Nursing Amount of Assist Needed Standby Assistance Discharge Recommendations PT Discharge Recommendations Home with Assistance, Outpatient PT Transportation Needs at Discharge Private Vehicle
--- NOTE | 2022-12-16 09:19 | CM.DANOTE ---
Initial DCP Assessment Note Pt is a 67 yo male, resident of [place], now POD#1 s/p left total hip arthroplasty PCP: Anmol Banks Payer: [facility]/ for [facility] Reviewed chart, Therapy has cleared pt for return home w/family to assist and pt has planned for home, DC order from Ortho has already been initiated this morning. No barriers identified at this time to patient's safe discharge home w/family to assist; close outpatient f/u recommended. HOLLEY Saenz Discharge Planning/Care Management CM Discharge Assessment Start: 12/16/22 09:17 Freq: Status: Active Protocol: Document 12/16/22 09:17 AFSHAN (Rec: 12/16/22 09:19 [email or web address] [id number]) Discharge Planning Assessment Assigned Mycologist HOLLEY Preciado DPOA/Assigned Designee Name Meri () Contact Information [phone] Advance Directives? No Advance Directives on File No History Provided By Patient,Medical Record Prior Living Arrangements House Household Members spouse Type of transporation used prior to Drives own vehicle admit Independent with ADL's Yes Is patient alert and oriented? Yes Patient/Family Preference OP PT Therapy Barriers to Discharge No Discharge Plan Home Transportation Arrangement Spouse Referrals Initiated None needed
--- NOTE | 2022-12-16 09:43 | OT.IP.EVAL ---
Current Diagnoses Unilateral primary osteoarthritis, left hip (12/15/22) Surgery Performed Operation Date: 12/15/22 10:45 Actual Procedures p Total Hip Arthroplasty(Left) - Dominique Bustillo MD Past Medical History (Last Updated 12/05/22 @ 14:13 by Candida Beach, RN) Ankle pain (~2014) Chronic back pain (~2014) Chronic cough (~1989) Encounter for routine ophthalmic evaluation and examination (12/13/16) Fever Frequent urinary incontinence GERD (gastroesophageal reflux disease) (~2004) Hay fever (~1989) Incomplete emptying of bladder Lower urinary tract symptoms Overactive bladder Pain in the coccyx (12/13/16) Restless leg syndrome (~1989) Scoliosis (~2014) Screening cholesterol level Shoulder pain (~2004) Sleep apnea (~1989) Urge incontinence Urgency of urination Urinary incontinence Vision disorder Surgical History (Last Updated 12/05/22 @ 14:12 by Candida Beach RN) Anesthesia History of spinal fusion (~2015) Hx of arthroscopy of knee Hx of bilateral cataract extraction Hx of eye surgery (2022) Hx of tonsillectomy Status post laminectomy (~2015) Occupational Therapy Inpatient Evaluation/Re-Eval M1 PT/OT-IP Prior Functional Status Start: 12/16/22 10:13 Freq: NEEDED Status: Active Protocol: Document 12/16/22 09:25 [facility] (Rec: 12/16/22 10:27 [facility] [id number]) Medical Review Prior Functional Status Medical History Reviewed Yes Communication able to make needs known Mobility and Gait pt stated that he is modified independent with all mobilities and ambulation without AD but uses a SPC depending on hip pain Activities of Daily Living and IADL's Pt states had pain during ADL and IADL needs. Social History Household Members spouse Living Arrangements House Number of Floors (Floors) Two Floors Number of Stairs To Enter/Railing? 3 steps without rails to enter with braun on B sides has 7 steps B rail +platform+7 steps R rail ascending to 2nd level of the house Home Environment Standard Height Toilet,Walk in Shower,Built-In Shower Seat Home Equipment Front Wheel Walker,Four Wheel Walker,Straight Cane,Raised Toilet Seat w/Armrests,Hand Held Shower,Long Handled Shoe Horn,Gambling Dealer,Sock Aid Additional Social History Comment pt has 2 FWW: one on each level of the house Pt has has a toilet paper aid M2 OT-IP Current Condition Start: 12/16/22 10:13 Freq: Status: Active Protocol: Document 12/16/22 09:25 [facility] (Rec: 12/16/22 10:27 [facility] [id number]) Occupational Therapy Current Condition Current Condition Evaluation Date 12/16/22 Treatment Diagnosis S/p L ZHAO Post Operative Precautions Posterior Hip Precautions No Hip Flexion > 90 degrees,No Hip Internal Rotation,No Hip Adduction M3 OT- IP Subjective and Pain Start: 12/16/22 10:13 Freq: Status: Active Protocol: Document 12/16/22 09:25 [facility] (Rec: 12/16/22 10:27 [facility] [id number]) OT- Subjective Occupational Therapy Visit Type Type Initial Evaluation Visit Start Time 09:25 Visit Stop Time 09:43 Total Visit Minutes 18 Occupational Therapy Visit Comments Patient Comments Pt agreed to get dressed in order to practice use of LB dressing equipment. Patient/Caregiver Goals To go home. OT Pain Assessment Pain When Pain Assessed At Rest Pain Present Pain Present Denied Pain M4 OT- IP ADL's Start: 12/16/22 10:13 Freq: Status: Active Protocol: Document 12/16/22 09:25 [facility] (Rec: 12/16/22 10:27 [facility] [id number]) OT [id number]-[id number]-Uhyfuyj General Evaluation Self-Feeding Ability Independent OT ADL-Grooming Comments OT Grooming Comments Not performed OT ADL-Oral Care Comments Oral Care Comments Not performed OT ADL-Dressing General Eval Lower Body Dressing Ability Standby Assistance Areas Needing Assistance Retrieving/Set-up of Clothing Comments OT Dressing Comments Pt able to use LB dressing equipment safely in order to follow all his hip precautions . OT ADL-Toileting Comments OT Toileting Comments Not performed. Pt states has a toilet paper aid and wipes at home to use. OT ADL-Bathing Comments OT Bathing Comments Spoke on getting a shower chair or to double check on the height of the built in shower seat. Pt's able to assist pt at home. M5 OT- IP IADL's Start: 12/16/22 10:13 Freq: Status: Active Protocol: Document 12/16/22 09:25 [facility] (Rec: 12/16/22 10:27 [facility] [id number]) OT-Instrumental Activities of Daily Living Deficits IADL Deficits Identified Deficits Home Safety Awareness Awareness of Need for Assistance at Home Good Awareness Ability to Problem Solve Emergency Able to Problem Solve Situations Home Safety Comments Pt has a supportive to assist for his needs. M6 OT- IP Functional Cognition Start: 12/16/22 10:13 Freq: Status: Active Protocol: Document 12/16/22 09:25 [facility] (Rec: 12/16/22 10:27 [facility] [id number]) Cognitive Factors Limiting Selfcare Function Cognitive Ability Level of Alertness Alert Patient Orientation Name,Age,Birthday,Month,Date, Year,Day of Week,Place, Situation Attention Span Ability Capable of Focused Attention, Capable of Sustained Attention Ability to Follow Commands Able to Follow Multi-Step Commands Safety Awareness Underestimates Need for Assistance Cognitive Comments Cognitive Assessment Comments Pt intact but insistent on trying to use the SPC for a few steps. Pt able to do with CGA for assist and continue to insist that he uses the FWW for his safety and balance. M7 OT- IP Mobility and Balance Start: 12/16/22 10:13 Freq: Status: Active Protocol: Document 12/16/22 09:25 [facility] (Rec: 12/16/22 10:27 [facility] [id number]) OT-Transfer Assessment Sit to and From Stand Sit to and from Stand Standby Assistance Transfers Transfer Ability Standby Assistance Technique Transfer Destination Bed Devices Transfer Assistive Devices Front Wheeled Walker Comments Mobility Comments SBA to come to stand to the FWW. OT- Balance Assessment Sitting Balance and Reactions Static Sitting Balance Ability Normal Dynamic Sitting Balance Ability Good Standing Balance and Reactions Static Standing Balance Ability Good Dynamic Standing Balance Ability Good Comments Other Balance Tests/Deviations/Treatment with FWW : Fair- balance with SPC for a few steps as pt wanting to try . M9 OT- IP Assessment and Plan Start: 12/16/22 10:13 Freq: Status: Active Protocol: Document 12/16/22 09:25 [facility] (Rec: 12/16/22 10:27 [facility] [id number]) OT Summary Assessment and Plan Potential Rehabilitation Potential Excellent Analytic Complexity at Evaluation Low Summary OT Impairments Balance,Functional Mobility, Bathing,Shower Transfers Progress Towards Goals Progressing Toward Goals Assessment Summary Pt low complexity and doing well and able to use LB dressing effectively and safely to follow his hip precautions well. Pt wanting to try the SPC for a few steps and realizes best to just use the FWW for now for his safety. Pt to go home with assist when medically stable. Goals Bathing Goal Independent Shower Transfer Goal Independent Days to Meet Goals 5 Frequency of Treatment Frequency Of Treatment Once a Day Treatment Plan OT Treatment Plan ADL Training,Functional Mobility,Patient/Family Education,Discharge Planning Discharge Recommendations OT Discharge Recommendations Home with Assistance Home Equipment Needs shower chair? Transportation Needs at Discharge Private Vehicle
--- NOTE | 2022-12-16 10:37 | PC.NURSE ---
Day shift: Paperwork signed and all questions answered. Pt left unit via WC at approx 1040. Taken to car by PCT Kalie. Spouse in room for teachings and she is driving Pt home. Pain well controlled per SEP. Dressing remains CDI. Pt has MD scripts already.
== END 2022-12-16 10:39 | disposition home or self-care (01) ==
LOC: OR 08:57 → AC 08:57
PROVIDERS: PCP Family Medicine; Referring Provider Orthopaedic Surgery; Visit Provider Orthopaedic Surgery
PROC: 0SRB0JZ Replacement of Left Hip Joint with Synthetic Substitute, Open Approach (ICD-10-PCS; CPT 27130; principal; 2022-12-15 10:45)
DX: M16.12 Unilateral primary osteoarthritis, left hip (principal); G47.30 Sleep apnea, unspecified
CPT/HCPCS: 27130; 36415; 72170; 73502; 85014; 85018; 97116; 97162; 97165; 97530; C1776; C9290; J0171; J0690; J1170; J2250; J3010

== ENCOUNTER → 2024-02-09 13:26 | Outpatient (CLI) | payer MEDICARE, OTHER, SELFPAY ==
[2022-12-15 14:57] VITALS: BMI 38.0
[2024-02-09 16:29] LABS: Prostate Specific Antigen Scrn 0.995 ng/mL (0.1-4.0)
== END ==
PROVIDERS: PCP Family Medicine; Referring Provider Urology; Visit Provider Urology
DX: Z12.5 Encounter for screening for malignant neoplasm of prostate (principal)
CPT/HCPCS: 36415; G0103

== ENCOUNTER → 2024-11-29 14:08 | Outpatient (CLI) | payer MEDICARE, OTHER, SELFPAY ==
[2022-12-15 14:57] VITALS: BMI 38.0
--- NOTE | 2024-11-29 15:37 | DI.NM.S_ITS ---
PROCEDURE: NM EXERCISE TREADMILL NON NUC COMPARISON: None. INDICATIONS: chest pain FINDINGS: Patient exercised per the standard Dereck protocol. Total exercise time was 6 minutes and 35 seconds. Test was terminated secondary to knee pain. Maximal heart rate obtained is 154 bpm which is 102% of maximum predicted heart rate. Maximum blood pressure [place] 202/[place] [address]. AYDE of +5%. 7.0 METS. No ischemic changes noted. No chest pains voiced. Occasional PVCs noted during the stress phase. No ventricular arrhythmias present. Normal heart rate with hypertensive response to exercise. IMPRESSION: 1. Negative exercise treadmill stress test for ischemia. 2. Below average exercise tolerance. 3. Hypertensive response to exercise. Dictated by: Sidney De Leon M.D. on 11/29/2024 at 17:03 Approved by: Sidney De Leon M.D. on 11/29/2024 at 17:04
== END ==
LOC: NUCM 14:09
PROVIDERS: PCP Family Medicine; Referring Provider Family Medicine; Visit Provider Family Medicine
DX: R07.9 Chest pain, unspecified (principal)
CPT/HCPCS: 93016; 93017; 93018

== ENCOUNTER → 2024-12-03 14:15 | Outpatient (CLI) | payer MEDICARE, OTHER, SELFPAY ==
[2022-12-15 14:57] VITALS: BMI 38.0
--- NOTE | 2024-12-03 14:17 | DI.ECHO.S_ITS ---
[facility] : : [address] : : [place] : : [id number] : : Phone: [phone] Echocardiogram Report + + :Name: GABI GREENFIELD Study Date: 12/03/2024 Height: 70 in : :Hospital ReadingLocation: Weight: 267 lb : : Gender: Male BSA: 2.4 m2 : :: 1955 Age: 69 yrs BP: 156/91 mmHg: :Reason For Study: Chest pain : :Ordering Physician: MICHELLE, : :GUNNAR Performed By: Timothy Mendez : :Referring: GUNNAR MARTINEZ : + + Interpretation Summary Sinus rhythm with heart rate 50-60 bpm. Normal LV size and mild concentric LVH; normal wall motion and LV systolic function. EF is 60-65%. Normal chamber sizes. No significant valvular abnormalities. No prior study available for comparison. Procedure: A two-dimensional transthoracic echocardiogram with color flow and Doppler was performed. The study quality was technically adequate. There is no prior echocardiogram noted for this patient. The patient was in unknown rhythm due to artifact during the exam. Left Ventricle: The left ventricle is normal in size. Left ventricular wall thickness is mildly increased. Left ventricular systolic function is normal. The ejection fraction is estimated to be 60-65%. There are no focal wall motion abnormalities. Diastolic parameters suggest a relaxation abnormality of the left ventricle, consistent with probable normal filling pressures. Right Ventricle: The right ventricle is normal in size and function. Atria: The left atrial size is normal. Right atrial size is normal. There is no Doppler evidence for an interatrial shunt. Mitral Valve: The mitral valve leaflets appear to open well. There is no mitral valve stenosis. There is trace mitral regurgitation. Aortic Valve: The aortic valve is trileaflet. There is mild aortic valve sclerosis. There is no hemodynamically significant valvular aortic stenosis. No aortic regurgitation is present. Tricuspid Valve: The tricuspid valve leaflets are thin and pliable. There is mild tricuspid regurgitation. The right ventricular systolic pressure is estimated to be at least 20 mmHg based on an estimated right atrial pressure of 3 mm Hg. Pulmonic Valve: The pulmonic valve is not well seen, but is grossly normal. There is a trace or physiologic amount of pulmonic regurgitation. Great Vessels: The aortic root is normal size. The ascending aorta is normal in size. The aortic arch is normal in size. The IVC is of normal diameter and collapses greater than 50% with a sniff. This suggests a low right atrial pressure of 3 mm Hg. Pericardium/ Pleura There is no pericardial effusion. MMode/2D Measurements & Calculations LVIDd: 4.5 cm LVOT diam: 2.4 cm LVIDs: 3.1 cm Ao root diam: 3.1 cm FS: 29.9 % asc Aorta Diam: 3.2 cm EPSS: 0.51 cm Ao Arch Diam (Prox Trans): 2.6 cm IVSd: 1.4 cm LVPWd: 1.3 cm LV rg. diameter/BSA (cm/m^2): 1.9 LV sys. diameter/BSA (cm/m^2): 1.3 LA A2 area: 22.5 cm2 RA long axis: 5.6 cm LA A4 area: 22.6 cm2 RA area: 14.7 cm2 LA length (vol): 6.2 cm RA vol: 32.5 ml LA vol: 69.4 ml RA : 13.8 ml/m2 LA vol index: 29.4 ml/m2 IVC diam: 1.9 cm RVD1 (basal): 3.1 cm RVD2 (mid): 2.8 cm TAPSE: 1.8 cm Doppler Measurements & Calculations Ao V2 max: 183.0 cm/sec LVOT Max Ari: 86.7 cm/sec Ao V2 mean: 116.6 cm/sec LV V1 max P.0 mmHg Ao max P.4 mmHg LV V1 VTI: 20.9 cm Ao mean P.6 mmHg LORENZA(I,D): 2.4 cm2 Ao V2 VTI: 38.2 cm LORENZA(V,D): 2.1 cm2 sev ratio: 0.55 LORENZA indexed to BSA (cm^2/m^2): 1.0 MV E max ari: 78.0 cm/sec TR max ari: 207.4 cm/sec MV A max ari: 68.9 cm/sec TR max P.2 mmHg MV E/A: 1.1 PA V2 max: 85.0 cm/sec Med Peak E' Ari: 6.8 cm/sec PA V2 mean: 58.6 cm/sec E/E' med: 11.4 PA mean P.6 mmHg Lat Peak E' Ari: 6.8 cm/sec PA pr(Accel): 39.6 mmHg E/E' lat: 11.4 E/e' average: 11.4 MV dec time: 0.23 sec SV(LVOT): 93.1 ml Electronically signed by: Radha Aguilar M.D. on [place] Physician:12/03/2024 07:45 PM
[2024-12-03 15:57] LABS: Add Manual Diff / Slide Review NO; Basophils Absolute Auto 0 /uL (0-100); Basophils Percent Auto 0.5 % (0-2); Eosinophils Absolute Auto 100 /uL (0-450); Eosinophils Percent Auto 3.6 % (2-4); Hematocrit 42.5 % (41-53); Hemoglobin 14.4 g/dL (13.5-17.5); Lymphocytes Absolute Auto 1300 /uL (1100-4500); Lymphocytes Percent Auto 36.3 % (25-40); Mean Corpuscular HGB Conc 33.8 % (30-36); Mean Corpuscular Hemoglobin 31.3 PG (26-34); Mean Corpuscular Volume 92.7 fL (80-100); Monocytes Absolute Auto 300 /uL (0-900); Monocytes Percent Auto 9.1 % (3-14); Neutrophils Absolute Auto 1900 /uL (1500-7000); Neutrophils Percent Auto 50.5 % (50-75); Platelet Count 175 X10^3/uL (150-400); Red Blood Cell Count 4.59 X10^6/uL (4.5-5.9); Red Cell Distribution Width 14.1 % (11.6-14.8); White Blood Cell Count 3.7 X10^3/uL (4.5-11.0)
[2024-12-03 16:25] LABS: Alanine Aminotransferase 46 IU/L (<50); Albumin 4.8 g/dL (3.5-5.0); Albumin Globulin Ratio 2.1 (1.0-2.8); Alkaline Phosphatase 54 U/L (38-126); Aspartate Aminotransferase 50 IU/L (17-59); Bilirubin Total 0.7 mg/dL (0.2-1.3); Blood Urea Nitrogen 16 mg/dL (9-20); Calcium 9.6 mg/dL (8.4-10.2); Carbon Dioxide 21 mmol/L (22-32); Chloride 106 mmol/L (98-107); Cholesterol 213 mg/dL (140-199); Estimated Glomerular Filt Rate > 60 mL/min (>60); Globulin 2.3 g/dL (1.7-4.1); Glucose 84 mg/dL (70-99); HDL Cholesterol 80 mg/dL (40-60); HEMOLYSIS < 15 (0-50); LDL Cholesterol Calculated 118 mg/dL (<100); Potassium 3.9 mmol/L (3.4-5.1); Sodium 137 mmol/L (137-145); Total Protein 7.1 g/dL (6.3-8.2); Triglycerides 74 mg/dL (35-150)
[2024-12-03 16:37] LABS: NT-proBNP (BNP-Adult 18+) 55 pg/mL (<125)
[2024-12-03 16:54] LABS: TSH w/ Reflex to FT4 0.36 uIU/mL (0.47-4.68)
[2024-12-03 16:58] LABS: Prostate Specific Antigen Scrn 1.36 ng/mL (0.1-4.0)
[2024-12-03 17:39] LABS: Free T4, Direct Thyroxine 1.19 ng/dL (0.78-2.19)
== END ==
LOC: ECHO 14:16
PROVIDERS: PCP Family Medicine; Referring Provider Family Medicine; Visit Provider Family Medicine
DX: Z12.5 Encounter for screening for malignant neoplasm of prostate (principal); I07.1 Rheumatic tricuspid insufficiency; N40.0 Benign prostatic hyperplasia without lower urinary tract symptoms; R07.9 Chest pain, unspecified
CPT/HCPCS: 36415; 80053; 80061; 83880; 84439; 84443; 85025; 93306; G0103

== ENCOUNTER → 2025-04-26 08:22 | Outpatient (CLI) | payer MEDICARE, OTHER, SELFPAY ==
[2022-12-15 14:57] VITALS: BMI 38.0
[2025-04-26 10:09] LABS: Prostate Specific Antigen 1.46 ng/mL (0.10-4.00)
== END ==
PROVIDERS: PCP Family Medicine; Referring Provider Urology; Visit Provider Urology
DX: R97.20 Elevated prostate specific antigen [PSA] (principal)
CPT/HCPCS: 36415; 84153